=== PATIENT | female | born 2000 | race African-American/Black ===

== ENCOUNTER 2019-03-16 10:21 | Emergency (ER) | payer MEDICAID, OTHER ==
[~2019-03-16] VITALS: Ht 180.3 cm; Wt 84.0 kg
[2019-03-16] MEDS ORDERED: SODIUM CHLORIDE 0.9% 1,000 ML IV ONE (12:00)
[2019-03-16] MEDS ORDERED: DIPHENHYDRAMINE 50MG/ML VIAL IV ONE (12:00)
[2019-03-16] MEDS ORDERED: ONDANSETRON HCL 4MG/2ML INJ IV ONE (12:00)
[2019-03-16] MEDS ORDERED: KETOROLAC 30MG/ML VIAL IV ONE (12:00)
[2019-03-16 13:21] VITALS: BP 122/78
== END 2019-03-16 13:24 | disposition home or self-care (01) ==
LOC: ER 10:21
DX: G43.909 Migraine, unspecified, not intractable, without status migrainosus (principal)
CPT/HCPCS: 81025; 96361; 96374; 96375; 99283; J1200; J1885; J2405; J7030